=== PATIENT | female | born 1955 | race Hispanic/Latino ===

== ENCOUNTER 2017-12-31 08:31 | Inpatient (IN) | payer MEDICARE ==
[2017-12-28 12:43] LABS: BASOPHILS # (AUTO) 0.1 (0.0-0.1); BASOPHILS % 0.7 % (0.0-1.0); EOSINOPHILS # (AUTO) 0.2 (0.0-0.4); EOSINOPHILS % 2.5 % (0.0-6.0); HEMOGLOBIN 14.6 g/dL (12.0-16.0); LYMPHOCYTES # (AUTO) 3.5 (1.0-3.2); MEAN CORPUSCULAR HEMOGLOBIN 28.4 pg (28-32); MEAN CORPUSCULAR HGB CONC 34.8 g/dL (31-35); MEAN CORPUSCULAR VOLUME 81.7 fL (81-99); MONOCYTES # (AUTO) 0.6 (0.2-0.8); MONOCYTES % 6.4 % (4.4-11.3); NEUTROPHILS # (AUTO) 4.6 (2.1-6.9); NEUTROPHILS % 50.8 % (38.7-80.0); PLATELET COUNT 316 x10e3/uL (140-360); RED BLOOD COUNT 5.14 x10e6/uL (3.6-5.1); RED CELL DISTRIBUTION WIDTH 13.4 % (11.7-14.4)
[2017-12-28 13:06] LABS: ANION GAP 9.1 mmol/L (8-16); BLOOD UREA NITROGEN 12 mg/dL (7-26); BUN/CREATININE RATIO 13 (6-25); CALCIUM 9.3 mg/dL (8.4-10.2); CARBON DIOXIDE 29 mmol/L (22-29); CHLORIDE 101 mmol/L (98-107); EST GLOMERULAR FILTRATION RATE > 60 ML/MIN (60-); GLUCOSE 193 mg/dL (74-118); POTASSIUM 4.1 mmol/L (3.5-5.1); SODIUM 135 mmol/L (136-145)
[~2017-12-31] VITALS: Ht 167.6 cm; Wt 84.8 kg
[~2017-12-31 08:31] MED LIST: ASPIR 8181 MG PO; BACITRACIN 50,000 UNIT VIAL ONE; BUPIVACAINE 7.5MG/ML /DEXTROSE 82.5MG/ML 2 ML AMP INJ ONE; CEFAZOLIN SOD 2 GM/D5W 50ML 50 ML IV ONE; CELECOXIB 200 MG CAP ONE; DEXAMETHASONE SOD PHOS 10 MG/1 ML VIAL ONE; GABAPENTIN 300 MG CAP ONE; GABAPENTIN100 MG PO; GLIPIZIDE5 MG PO; IBANDRONATE SO150 MG PO; LEVEMIR100 UNIT/1 SC; LYRICA50 MG PO; MELOXICAM7.5 MG PO; METFORMIN HCL500 MG PO; METOPROLOL TART25 MG PO; MUPIROCIN 2% OINT 22 GM TUBE ONE; NOVOLOG100 UNIT/1 SC; PAROXETINE HCL20 MG PO; PRAVASTATIN SOD40 MG PO; ROPIVACAINE 246.25 MG, EPINEPHRINE HCL 1:1000 0.5 MG, CLONIDINE HCL 0.08 MG, KETOROLAC ... INJ ONE; TRANEXAMIC ACID 1,000 MG/10 ML ML ONE; TYLENOL # 31 EA PO; ULTRAM 50MG50 MG PO; VASOTEC10 MG PO; VITAMIN D1000 UNI1 PO
[2017-12-31] MEDS: SODIUM CHLORIDE 0.9% 1000ML 1,000 ML IV SCH ×2 (09:17→22:34)
[2017-12-31] MEDS ORDERED: HYDROCODONE/APAP 7.5MG-325MG 1 EA TAB PO PRN (09:30)
[2017-12-31] MEDS ORDERED: PROMETHAZINE HCL (IM) 25 MG/ML VIAL INJ PRN (09:30)
[2017-12-31] MEDS ORDERED: DIPHENHYDRAMINE HCL INJ 50 MG/ML VIAL IM/IV PRN (09:30)
[2017-12-31] MEDS ORDERED: ACETAMINOPHEN 650 MG SUPP PR PRN (09:30)
[2017-12-31] MEDS ORDERED: HYDROCODONE/APAP 5MG-325MG TAB PO PRN (09:30)
[2017-12-31] MEDS ORDERED: KETOROLAC TROMETHAMINE 30 MG/ML VIAL IV PRN (09:30)
[2017-12-31] MEDS ORDERED: ZOLPIDEM TARTRATE 5 MG TAB PO PRN (09:30)
[2017-12-31] MEDS ORDERED: DOCUSATE SODIUM 100 MG CAP PO PRN (09:30)
[2017-12-31] MEDS ORDERED: ONDANSETRON HCL INJ 2 MG/ML VIAL IV PRN (09:30)
--- NOTE | 2017-12-31 11:13 | Diagnostic Imaging Report ---
PROCEDURE:X-RAY PELVIS, AP VIEW COMPARISON:None. INDICATIONS:POST-OP HIP FINDINGS: See conclusion CONCLUSION: Status post total right hip arthroplasty with intact and appropriately positioned acetabular cup and femoral stem components. Subcutaneous gas and skin tracy compatible with recent surgery. Advanced left hip degenerative joint disease. Dictated by: Mitesh Bernstein M.D. on 12/31/2017 at 11:13 Electronically approved by: Mitesh Bernstein M.D. on 12/31/2017 at 11:13
--- NOTE | 2017-12-31 11:35 | Operative Report ---
DATE OF PROCEDURE: December 31, 2017 AUDIT ANALYST: Kenny Helm PA-C The patient was brought to the operating room for induction of anesthesia. Throughout this case, my PA's assistance was necessary for retraction of soft tissue and positioning of the extremity. This allows for efficient and technically successful execution of the operation and is considered medically necessary. PREOPERATIVE DIAGNOSIS: Osteoarthritis, right hip. POSTOPERATIVE DIAGNOSIS: Osteoarthritis, right hip. PROCEDURE: Right total hip arthroplasty. INDICATIONS: The patient is a 62-year-old lady who has advanced arthritis of both hips. She has been treated with extensive conservative management and feels the symptoms are severely compromising her quality of life. She would like to proceed with a right total hip replacement. We have discussed the procedure and the risks and benefits of the procedure. She states she understands and wishes to proceed. DESCRIPTION OF PROCEDURE: The patient was brought to the operating room after receiving prophylactic antibiotics and transexamic acid. She was placed under general anesthetic after being given a spinal. She was positioned in the left lateral decubitus position. Her right hip was prepped and draped in a sterile manner. A preoperative time out was performed. A limited incision posterior approach was made to the right hip. Hemostasis was obtained with electrocautery. A Charnley self-retraining retractor was placed. The posterior capsule was carefully exposed, and further hemostasis was obtained with electrocautery. The posterior capsule and short external rotators were released. The hip was dislocated, and an oscillating saw was used to resect the femoral head. Complete loss of articular cartilage was noted. Acetabular retractors were placed. The labral remnant was excised with a long-handled knife. The true floor of the acetabulum was established. The socket was then sequentially reamed to 53 mm. This accomplished bleeding hemispherical cancellous bone. A small subchondral cyst in the dome of the acetabulum was debrided. A Arnold [employer]omet OsseoTi socket with a 54 mm outer diameter was then impacted into place. Nice fixation was obtained. Fixation was augmented with a single 25 mm screw placed into the ilium. The hip was thoroughly irrigated with a shower-tip pulsatile lavage on several occasions throughout this portion of the procedure. A highly cross-linked polyethylene liner with a 36 mm inner diameter was then impacted into place. Care was taken to make sure that there was no evidence of soft-tissue interposition. A portion of a 100 mL pericapsular ADAM injection was placed into the soft tissue. Attention was then directed towards the proximal femur. The socket was packed with moistly soaked lap sponge. Box cutting osteotome and taper pin reamer were used to establish entry to the femoral canal. The Arnold [employer]omet Taperloc broaches were then impacted and trialed. A #12 stem had good canal fill and stability for trial reductions. A standard 36 mm head provided nice stability, pentecostal of limb length and soft-tissue balancing. The trial implants were removed. The hip was thoroughly irrigated with a Pulsavac. The implants were seated, and a final reduction was performed. The hip was put through a range of motion and noted to be stable. The posterior capsule and short external rotators were repaired with #2 Ethibond. The tensor fascia and gluteal fascia were closed with #2 Ethibond. The skin was closed subcuticular Vicryl and tracy. Estimated blood loss was 100 mL. All needle and sponge counts were correct. Job#: [id number]
[2017-12-31 12:00] VITALS: BP 110/53
[2017-12-31] MEDS: ACETAMINOPHEN 1000 MG/100 ML IV SCH ×2 (12:00→17:17)
[2017-12-31 12:42] VITALS: BP 101/55
[2017-12-31] MEDS ORDERED: CEFAZOLIN SOD 1 GM VIAL IV SCH (14:00)
[2017-12-31] MEDS ORDERED: CEFAZOLIN SOD 1 GM/NS 50ML 50 ML IV SCH (14:00)
[2017-12-31 16:26] VITALS: BP 102/54
[2017-12-31] MEDS ORDERED: GABAPENTIN 100 MG CAP PO PRN (16:30)
[2017-12-31] MEDS ORDERED: TRAMADOL HCL 50 MG TAB PO PRN (16:30)
[2017-12-31] MEDS: CELECOXIB 200 MG CAP PO SCH (17:00)
[2017-12-31] MEDS: INSULIN LISPRO 100 UNIT/1 ML 3ML VIAL SQ SCH (17:00)
[2017-12-31] MEDS: METFORMIN HCL 500 MG TAB PO SCH (17:00)
[2017-12-31] MEDS: CEFAZOLIN SOD 1 GM VIAL IV SCH (17:00)
[2017-12-31] MEDS: ASPIRIN 325 MG TAB PO SCH (17:00)
[2017-12-31] MEDS ORDERED: ONDANSETRON HCL INJ 2 MG/ML VIAL ONE (18:08)
[2017-12-31] MEDS ORDERED: SEVOFLURANE INHAL SOLN 250 ML PEN BTL ONE (18:08)
[2017-12-31] MEDS ORDERED: LIDOCAINE HCL 2% LOCAL INJ 5 ML SDV VIAL INJ ONE (18:08)
[2017-12-31] MEDS ORDERED: PROPOFOL IV EMULSION 10 MG/ML 20 ML VIAL ONE (18:08)
[2017-12-31] MEDS ORDERED: FENTANYL CITRATE/PF 100MCG/2 ML INJ ONE (18:24)
[2017-12-31] MEDS ORDERED: MIDAZOLAM HCL 2 MG/2 ML VIAL ONE (18:24)
[2017-12-31 20:00] VITALS: BP 112/56
[2017-12-31] MEDS: METOPROLOL TARTRATE 25 MG TAB PO SCH (21:00)
[2017-12-31] MEDS ORDERED: PRAVASTATIN 20 MG TAB PO SCH (21:00)
[2017-12-31] MEDS: INSULIN DETEMIR 100 UNIT/ML PEN SQ SCH (21:00)
[2017-12-31] MEDS ORDERED: INSULIN DETEMIR 32 UNIT SC SCH (21:00)
[2017-12-31] MEDS ORDERED: NON-FORMULARY MEDICATION (Pravastatin Sodium 1 TAB) PO SCH (21:00)
[2017-12-31] MEDS: PREGABALIN 50 MG CAP PO SCH (22:36)
[2018-01-01] VITALS: BP 104/53
[2018-01-01] MEDS: CEFAZOLIN SOD 1 GM VIAL IV SCH ×2 (00:20→08:00)
[2018-01-01] MEDS: ACETAMINOPHEN 1000 MG/100 ML IV SCH ×2 (00:20→06:20)
[2018-01-01 04:00] VITALS: BP 111/56
[2018-01-01] MEDS: SODIUM CHLORIDE 0.9% 1000ML 1,000 ML IV SCH ×3 (05:17→15:17)
[2018-01-01] MEDS ORDERED: HYDROMORPHONE 1MG/1ML INJ IV PRN (06:15)
[2018-01-01 07:20] LABS: HEMATOCRIT 29.6 % (34.2-44.1)
[2018-01-01] MEDS: INSULIN LISPRO 100 UNIT/1 ML 3ML VIAL SQ SCH ×3 (07:30→16:30)
[2018-01-01 08:29] VITALS: BP 105/58
[2018-01-01] MEDS: PREGABALIN 50 MG CAP PO SCH (09:00)
[2018-01-01] MEDS: METFORMIN HCL 500 MG TAB PO SCH ×2 (09:00→17:00)
[2018-01-01] MEDS: CELECOXIB 200 MG CAP PO SCH ×2 (09:00→17:00)
[2018-01-01] MEDS ORDERED: IBANDRONATE PO SCH (09:00)
[2018-01-01] MEDS: METOPROLOL TARTRATE 25 MG TAB PO SCH (09:00)
[2018-01-01] MEDS ORDERED: GLIPIZIDE 5 MG TAB PO SCH (09:00)
[2018-01-01] MEDS: INSULIN DETEMIR 100 UNIT/ML PEN SQ SCH (09:00)
[2018-01-01] MEDS: ASPIRIN 325 MG TAB PO SCH ×2 (09:00→17:00)
[2018-01-01] MEDS ORDERED: ENALAPRIL MALEATE 10 MG TAB PO SCH (09:00)
[2018-01-01] MEDS ORDERED: IBANDRONATE SODIUM PO SCH (09:00)
[2018-01-01] MEDS ORDERED: PAROXETINE HCL 20 MG TAB PO SCH (09:00)
[2018-01-01] MEDS ORDERED: ACETAMINOPHEN 1000 MG/100 ML IV PRN (09:30)
[2018-01-01] MEDS ORDERED: ASPIRIN325 MG PO (11:54)
[2018-01-01 16:44] VITALS: BP 98/57
--- NOTE | 2018-01-01 23:56 | Consultation ---
DATE OF CONSULTATION: January 01, 2018 TIME: 6:00 a.m. MEDICAL CONSULTATION REQUESTED BY: Dr. Campos REASON FOR CONSULTATION: Medical management. CHIEF COMPLAINT: Severe osteoarthritis of the right hip. HISTORY OF PRESENT ILLNESS: This is a 62-year-old woman, with severe osteoarthritis of the bilateral hips, who presented for elective revision of right hip. Procedure was performed. Patient's pain is currently 8/10. She denies any nausea, vomiting. PAST MEDICAL HISTORY: Severe osteoarthritis, diabetes mellitus, type 2, rheumatoid arthritis, hypertension, osteoporosis, urinary tract infection E. coli in 2016, fibroids, diabetic neuropathy, positive JEROME testing, low vitamin D. PAST SURGICAL HISTORY: Abscess removal, in 1979 and 1990, cholecystectomy in 1980, partial hysterectomy in 1981. ALLERGIES: PER ELECTRONIC MEDICAL RECORD. FAMILY HISTORY/SOCIAL HISTORY: Patient's daughter is involved in her care. Her mother is age 84, she had diabetes mellitus, type 2, and stoke. Her father at age 63 of tuberculosis and heart attack. Patient denies any alcohol, illicits or cigarettes. MEDICATIONS: Per electronic medical record. REVIEW OF SYSTEMS: Denies any dizziness or chest pain. PHYSICAL EXAMINATION VITAL SIGNS: Temperature 96.9, pulse 70, blood pressure 110/63, respiratory rate 16, oxygen saturation 98% on room air. GENERAL: A tired-appearing woman resting in bed. HEENT: Anicteric. CARDIOVASCULAR: Normal S1, S2 without murmurs. ABDOMEN: Soft, nontender, nondistended. EXTREMITIES: Right hip, she has a dressing in place, clean and dry. SKIN: Dry. PSYCHIATRIC: Normal affect. NEUROLOGIC: Alert and oriented times 3. Moving extremities. LABS: Reviewed. MEDICATIONS: Reviewed. ASSESSMENT AND PLAN: A 62-year-old woman with 1. Severe osteoarthritis/rheumatoid arthritis. She is status post right hip replacement: Physical therapy consultation. Continue deep venous thrombosis prophylaxis. 2. Right hip pain. P.r.n. narcotics, titrate as appropriate. 3. Diabetes mellitus, type 2. Continue home medication. 4. Hypertension. Continue medication regimen. 5. Anxiety/depression. Continue paroxetine. 6. Insomnia. Continue Ambien. 7. Prophylaxis: Continue deep venous thrombosis prophylaxis. 8. Disposition: Discharge planning per the primary team. Job#: [id number] CQ
[2018-01-05] MEDS ORDERED: CHOLECALCIFEROL 1,000 UNIT TAB PO SCH (09:00)
[2018-01-23] MEDS ORDERED: ERGOCALCIFEROL 50,000 UNIT CAP PO SCH (09:00)
== END 2018-01-01 18:08 | disposition home health service (06) | DRG 470 ==
LOC: OR 08:31 → MED/SURG 11:10
PROVIDERS: ADMIT Specialist; ATTEND Specialist
PROC: 0SR904Z Replacement of Right Hip Joint with Ceramic on Polyethylene Synthetic Substitute, Open Approach (ICD-10-PCS; principal; 2017-12-31 07:30)
DX: M16.11 Unilateral primary osteoarthritis, right hip (principal); E11.40 Type 2 diabetes mellitus with diabetic neuropathy, unspecified; D64.9 Anemia, unspecified; M06.9 Rheumatoid arthritis, unspecified; I10 Essential (primary) hypertension; F41.8 Other specified anxiety disorders; G47.00 Insomnia, unspecified; Z79.82 Long term (current) use of aspirin; Z79.4 Long term (current) use of insulin
CPT/HCPCS: 36415; 72170; 80048; 82948; 85014; 85018; 85025; 86850; 86900; 86920; 93005; 97139; C1713; J0171; J0690; J1100; J1885; J2001; J2250; J2405; J2795; J7030

== ENCOUNTER 2018-04-01 05:17 | Inpatient (IN) | payer MEDICARE ==
[2018-03-29 12:43] LABS: BASOPHILS # (AUTO) 0.1 (0.0-0.1); BASOPHILS % 0.5 % (0.0-1.0); EOSINOPHILS % 0.2 % (0.0-6.0); HEMATOCRIT 40.7 % (34.2-44.1); HEMOGLOBIN 13.7 g/dL (12.0-16.0); LYMPHOCYTES # (AUTO) 2.5 (1.0-3.2); LYMPHOCYTES % 26.7 % (18.0-39.1); MEAN CORPUSCULAR HEMOGLOBIN 27.3 pg (28-32); MEAN CORPUSCULAR HGB CONC 33.7 g/dL (31-35); MEAN CORPUSCULAR VOLUME 81.1 fL (81-99); MONOCYTES # (AUTO) 0.5 (0.2-0.8); MONOCYTES % 5.5 % (4.4-11.3); NEUTROPHILS # (AUTO) 6.3 (2.1-6.9); NEUTROPHILS % 66.8 % (38.7-80.0); PLATELET COUNT 310 x10e3/uL (140-360); RED BLOOD COUNT 5.02 x10e6/uL (3.6-5.1); RED CELL DISTRIBUTION WIDTH 13.2 % (11.7-14.4)
[2018-03-29 12:59] LABS: ANION GAP 11.5 mmol/L (8-16); BLOOD UREA NITROGEN 13 mg/dL (7-26); BUN/CREATININE RATIO 14 (6-25); CALCIUM 9.5 mg/dL (8.4-10.2); CARBON DIOXIDE 27 mmol/L (22-29); CHLORIDE 101 mmol/L (98-107); CREATININE, SERUM 0.91 mg/dL (0.57-1.11); EST GLOMERULAR FILTRATION RATE > 60 ML/MIN (60-); GLUCOSE 216 mg/dL (74-118); POTASSIUM 4.5 mmol/L (3.5-5.1); SODIUM 135 mmol/L (136-145)
[~2018-04-01] VITALS: Ht 165.1 cm; Wt 80.7 kg
[~2018-04-01 05:17] MED LIST changes: +ASPIRIN325 MG PO; -BACITRACIN 50,000 UNIT VIAL ONE; -BUPIVACAINE 7.5MG/ML /DEXTROSE 82.5MG/ML 2 ML AMP INJ ONE; -CEFAZOLIN SOD 2 GM/D5W 50ML 50 ML IV ONE; -CELECOXIB 200 MG CAP ONE; -DEXAMETHASONE SOD PHOS 10 MG/1 ML VIAL ONE; -GABAPENTIN 300 MG CAP ONE; -MUPIROCIN 2% OINT 22 GM TUBE ONE; -ROPIVACAINE 246.25 MG, EPINEPHRINE HCL 1:1000 0.5 MG, CLONIDINE HCL 0.08 MG, KETOROLAC ... INJ ONE; -TRANEXAMIC ACID 1,000 MG/10 ML ML ONE
[2018-04-01] MEDS ORDERED: CELECOXIB 200 MG CAP ONE (05:39)
[2018-04-01] MEDS ORDERED: CEFAZOLIN SOD 2 GM/D5W 50ML 50 ML IV ONE (05:40)
[2018-04-01] MEDS ORDERED: DEXAMETHASONE SOD PHOS 10 MG/1 ML VIAL ONE (05:40)
[2018-04-01] MEDS ORDERED: GABAPENTIN 300 MG CAP ONE (05:40)
[2018-04-01] MEDS ORDERED: ROPIVACAINE 246.25 MG, EPINEPHRINE HCL 1:1000 0.5 MG, CLONIDINE HCL 0.08 MG, KETOROLAC ... INJ ONE ×5 (06:00)
[2018-04-01] MEDS ORDERED: TRANEXAMIC ACID 1,000 MG/10 ML ML ONE (06:19)
[2018-04-01] MEDS ORDERED: MUPIROCIN 2% OINT 22 GM TUBE ONE (06:19)
[2018-04-01] MEDS ORDERED: BACITRACIN 50,000 UNIT VIAL ONE (06:20)
[2018-04-01] MEDS ORDERED: BUPIVACAINE 7.5MG/ML /DEXTROSE 82.5MG/ML 2 ML AMP INJ ONE (07:29)
[2018-04-01] MEDS ORDERED: ACETAMINOPHEN 650 MG SUPP PR PRN (08:45)
[2018-04-01] MEDS ORDERED: KETOROLAC TROMETHAMINE 30 MG/ML VIAL IV PRN (08:45)
[2018-04-01] MEDS ORDERED: HYDROCODONE/APAP 5MG-325MG TAB PO PRN (08:45)
[2018-04-01] MEDS ORDERED: DOCUSATE SODIUM 100 MG CAP PO PRN (08:45)
[2018-04-01] MEDS ORDERED: ONDANSETRON HCL INJ 2 MG/ML VIAL IV PRN (08:45)
[2018-04-01] MEDS ORDERED: DIPHENHYDRAMINE HCL INJ 50 MG/ML VIAL IM/IV PRN (08:45)
[2018-04-01] MEDS ORDERED: PROMETHAZINE HCL (IM) 25 MG/ML VIAL INJ PRN (08:45)
[2018-04-01] MEDS ORDERED: ZOLPIDEM TARTRATE 5 MG TAB PO PRN (08:45)
[2018-04-01] MEDS ORDERED: CELECOXIB 100 MG CAP PO SCH (09:00)
[2018-04-01] MEDS ORDERED: ASPIRIN 325 MG TAB PO SCH (09:00)
--- NOTE | 2018-04-01 09:44 | Diagnostic Imaging Report ---
PROCEDURE:X-RAY PELVIS, AP VIEW COMPARISON:[facility], DX, PELVIS AP 1-2 VIEWS, 12/31/2017, 10:38. INDICATIONS:STATUS POST LEFT HIP SURGERY FINDINGS: New left hip arthroplasty with good position the acetabular cup and femoral shaft portion of the prosthesis. Surgical tracy and gas in the soft tissues is noted about the left proximal hip and femur. Old right hip prosthesis present. There are no fractures, dislocations, lytic or blastic lesions. The bones are well-mineralized. CONCLUSION: Status post left hip arthroplasty with good position of the prosthesis. Zaire Alvarez D.O. Dictated by: Zaire Alvarez D.O. on 04/01/2018 at 9:48 Electronically approved by: Zaire Alvarez D.O. on 04/01/2018 at 9:48
[2018-04-01 10:00] VITALS: BP 115/59
[2018-04-01 10:23] VITALS: BP 84/46
[2018-04-01] MEDS: SODIUM CHLORIDE 0.9% 1000ML 1,000 ML IV SCH ×2 (10:28→18:22)
--- NOTE | 2018-04-01 10:39 | Operative Report ---
DATE OF PROCEDURE: April 01, 2018 PREOPERATIVE DIAGNOSIS: Osteoarthritis, left hip. POSTOPERATIVE DIAGNOSIS: Osteoarthritis, left hip. PROCEDURE: Left total hip arthroplasty. LEATHER GRAINER: Kenny Helm PA-C The patient was brought to the operating room for induction of anesthesia. Throughout this case, my PA's assistance was necessary for retraction of soft tissue and positioning of the extremity. This allows for efficient and technically successful execution of the operation and is considered medically necessary. INDICATIONS: The patient is a 62-year-old lady who has end-stage arthritis of her left hip. She had a similar situation on her right hip, which recently responded well to a right total hip replacement. She would now like to proceed with a left total hip replacement. The risks and benefits have been explained. The implants, the hospital stay, and recovery have all been reviewed. She states she understands and wishes to proceed. DESCRIPTION OF PROCEDURE: The patient was brought to the operating room and given a spinal anesthetic. She received prophylactic antibiotics and tranexamic acid in the holding area. She was positioned in the right lateral decubitus position. Her left hip was prepped and draped in a sterile manner. A preoperative time out was performed. A limited incision posterior approach was made to the left hip. Hemostasis was obtained with electrocautery. A deep self-retaining Charnley retractor was placed. Care was taken to avoid injury to the sciatic nerve. The posterior capsule was carefully released. The piriformis attachment was preserved. Further hemostasis was obtained with electrocautery. The hip was dislocated and an oscillating saw was used to resect the femoral head. Complete loss of articular cartilage was noted. Acetabular retractors were carefully placed. Marginal osteophytes and labral remnants were excised. The true floor of the acetabulum was established with a 46-mm reamer. The socket was then sequentially reamed to 53 mm. This accomplished bleeding hemispherical cancellous bone. The hip was thoroughly irrigated with a shower-tip pulsatile lavage. A portion of a premixed pericapsular ADAM injection was placed into the surroundings soft tissue. A [employer] 54 mm outer diameter OsseoTi socket was then impacted into place. Fixation was augmented with a single 25-mm cancellous screw placed into the ilium. A highly cross-linked polyethylene liner with no posterior elevation was then seated into place. Care was taken to make sure that there was no evidence of soft tissue interposition. Attention was then directed towards the proximal femur. A box cutting osteotome and taper pin reamers were used to establish entry to the femoral canal. The Arnold [employer] Taperloc broaches were then impacted. A #12 stem had good canal fill for trial reductions. A standard 36-mm head was felt to provide optimal soft tissue balancing, catholic, and stability. The hip was put through a full arc of motion without any anterior impingement or instability. The trial implants were removed. The hip was further irrigated with a shower-tip pulsatile lavage. The remainder of the pericapsular injection was placed. The implants were seated. A standard 36-mm head on a +0 trunnion was seated onto the stem. Meticulous care was used to perform a final reduction. The posterior capsule was carefully repaired with interrupted #2 Ethibond. The proximal portion of the tensor fascia was closed with #2 Ethibond. The gluteal fascia was closed with #2 Ethibond. The skin was closed with subcuticular Vicryl and tracy. A sterile bandage was applied. She was returned to the supine position and transported to the recovery room in stable condition. Blood loss was approximately 75 mL. At the end of the procedure, all needle and sponge counts were correct. Job#: [id number]
[2018-04-01 11:51] VITALS: BP 115/59
[2018-04-01] MEDS: PREGABALIN 50 MG CAP PO SCH ×2 (12:00→23:50)
[2018-04-01] MEDS ORDERED: IBANDRONATE SODIUM PO SCH (12:00)
[2018-04-01] MEDS: METOPROLOL TARTRATE 25 MG TAB PO SCH ×2 (12:00→23:55)
[2018-04-01] MEDS: ACETAMINOPHEN 1000 MG/100 ML IV SCH ×3 (12:57→23:50)
[2018-04-01] MEDS ORDERED: CEFAZOLIN SOD 1 GM/NS 50ML 50 ML IV SCH (14:00)
[2018-04-01] MEDS: TRAMADOL HCL 50 MG TAB PO SCH ×2 (14:09→20:47)
[2018-04-01] MEDS: CEFAZOLIN SOD 1 GM VIAL IV SCH ×2 (14:09→20:47)
[2018-04-01] MEDS ORDERED: FENTANYL CITRATE/PF 100MCG/2 ML INJ ONE (14:47)
[2018-04-01] MEDS ORDERED: KETAMINE HCL INJ 50 MG/ML 10 ML VIAL ONE (14:47)
[2018-04-01] MEDS ORDERED: MIDAZOLAM HCL 2 MG/2 ML VIAL ONE (14:47)
[2018-04-01] MEDS: HYDROCODONE/APAP 7.5MG-325MG 1 EA TAB PO PRN ×2 (15:30→23:51)
[2018-04-01] MEDS: METFORMIN HCL 500 MG TAB PO SCH (15:47)
[2018-04-01 16:03] VITALS: BP 87/51
[2018-04-01] MEDS ORDERED: INSULIN LISPRO 100 UNIT/1 ML 3ML VIAL SQ SCH (17:00)
[2018-04-01] MEDS: CELECOXIB 200 MG CAP PO SCH (17:00)
[2018-04-01] MEDS ORDERED: DEXTROSE 50% SYRINGE 50 ML IV PRN (17:30)
[2018-04-01] MEDS: INSULIN REGULAR, HUMAN 100 UNIT/1 ML 3ML VIAL SQ SCH ×2 (17:45→21:00)
[2018-04-01 20:00] VITALS: BP 115/58
[2018-04-01] MEDS: INSULIN DETEMIR 100 UNIT/ML PEN SQ SCH (20:48)
[2018-04-01] MEDS ORDERED: INSULIN DETEMIR 100 UNIT/ML PEN SQ SCH (21:00)
[2018-04-01] MEDS ORDERED: INSULIN DETEMIR 32 UNIT SC SCH (21:00)
[2018-04-01] MEDS ORDERED: NON-FORMULARY MEDICATION (Pravastatin Sodium 1 TAB) PO SCH (21:00)
[2018-04-01] MEDS ORDERED: PRAVASTATIN 20 MG TAB PO SCH (21:00)
[2018-04-02] VITALS: BP 91/70
[2018-04-02 04:00] VITALS: BP 89/50
[2018-04-02] MEDS: SODIUM CHLORIDE 0.9% 1000ML 1,000 ML IV SCH ×2 (04:31→12:06)
[2018-04-02] MEDS: CEFAZOLIN SOD 1 GM VIAL IV SCH (04:47)
[2018-04-02] MEDS: ACETAMINOPHEN 1000 MG/100 ML IV SCH (04:47)
[2018-04-02] MEDS: TRAMADOL HCL 50 MG TAB PO SCH ×2 (04:48→12:06)
[2018-04-02 06:47] LABS: HEMATOCRIT 28.8 % (34.2-44.1); HEMOGLOBIN 9.7 g/dL (12.0-16.0)
[2018-04-02] MEDS ORDERED: GLIPIZIDE 5 MG TAB PO SCH (07:30)
[2018-04-02] MEDS ORDERED: INSULIN LISPRO 100 UNIT/1 ML 3ML VIAL SQ SCH (07:30)
[2018-04-02] MEDS: INSULIN REGULAR, HUMAN 100 UNIT/1 ML 3ML VIAL SQ SCH ×2 (07:30→11:57)
[2018-04-02 07:56] VITALS: BP 113/54
[2018-04-02] MEDS: METFORMIN HCL 500 MG TAB PO SCH (08:11)
[2018-04-02] MEDS: CELECOXIB 200 MG CAP PO SCH (08:11)
[2018-04-02] MEDS ORDERED: ACETAMINOPHEN 1000 MG/100 ML IV PRN (08:45)
[2018-04-02] MEDS ORDERED: ENALAPRIL MALEATE 10 MG TAB PO SCH (09:00)
[2018-04-02] MEDS ORDERED: ASPIRIN 325 MG TAB PO SCH (09:00)
[2018-04-02] MEDS: INSULIN DETEMIR 100 UNIT/ML PEN SQ SCH (09:00)
[2018-04-02 09:26] VITALS: BP 113/54
--- NOTE | 2018-04-02 09:49 | History and Physical ---
PRIMARY CARE PHYSICIAN: Dr. Yossi Kelly CHIEF COMPLAINT: Left hip osteoarthritis. HISTORY OF PRESENT ILLNESS: This is a 62-year-old woman with a history of severe osteoarthritis of bilateral hips, who underwent right hip replacement now coming in for elective left hip replacement. She underwent the procedure yesterday, and currently is resting in bed with some discomfort. REVIEW OF SYSTEMS: Denies any chest pain, shortness of breath, fever, chills, sweats, nausea, vomiting, diarrhea, dizziness, blurred vision. PAST MEDICAL HISTORY: She has diabetes mellitus, type 2, hypertension, severe osteoarthritis, ambulatory dysfunction, diabetic neuropathy, osteoporosis, hyperlipidemia. PAST SURGICAL HISTORY: Right hip replacement. ALLERGIES: PER ELECTRONIC MEDICAL RECORD. FAMILY HISTORY/SOCIAL HISTORY: Patient has a child involved in her care. No alcohol, illicits or cigarettes. MEDICATIONS: Per electronic medical record. PHYSICAL EXAMINATION VITAL SIGNS: Have been reviewed. GENERAL: A tired-appearing woman resting in bed. HEENT: Anicteric. Pupils respond to light. No oral lesions. CARDIOVASCULAR: Normal S1 and S2. LUNGS: Moderate breath sounds. ABDOMEN: Soft, nontender and nondistended. EXTREMITIES: No edema or calf tenderness. Left hip with dressing in place clean and dry. SKIN: Dry. PSYCHIATRIC: Normal affect. LABS: Reviewed. MEDICATIONS: Reviewed. ASSESSMENT: This is a 62-year-old woman with: 1. Severe hip osteoarthritis: Status post left hip replacement. 2. Diabetes mellitus, type 2. 3. Hypertension. 4. Hyperlipidemia. 5. Left hip pain. 6. Normocytic anemia. 7. Osteoporosis. 8. Physical deconditioning. PLAN 1. Pain control. 2. Physical therapy. 3. Control diabetes. 4. Bowel regimen. 5. Continue home medications. 6. DVT prophylaxis and GI prophylaxis. 7. Disposition. Will need physical therapy at home. Job#: [id number] [place]
[2018-04-02] MEDS: HYDROCODONE/APAP 7.5MG-325MG 1 EA TAB PO PRN (11:15)
[2018-04-02] MEDS: PREGABALIN 50 MG CAP PO SCH (11:59)
[2018-04-02 12:00] VITALS: BP 105/52
[2018-04-02] MEDS ORDERED: ASPIRIN325 MG PO (13:11)
--- NOTE | 2018-04-03 07:46 | Discharge Summary ---
PRINCIPAL DIAGNOSES 1. Severe hip osteoarthritis, status post left hip replacement. 2. Diabetes mellitus, type 2. 3. Left hip pain. 4. Physical deconditioning. 5. Normocytic anemia. SECONDARY DIAGNOSIS: Diabetes mellitus, type 2. CHIEF COMPLAINT: Left hip pain. HISTORY OF PRESENT ILLNESS: This is a 62-year-old woman with left hip pain. Please refer to the H and P for further details. HOSPITAL COURSE: The patient had left hip pain and severe left hip osteoarthritis. Underwent left hip replacement. Pain was treated with medication regimen. Diabetes mellitus, type 2 was treated with medication. Also, was treated for hypertension and hyperlipidemia. For physical deconditioning, received physical therapy. The patient was transitioned out of the hospital. DISCHARGE MEDICATIONS: Per electronic medical record. FOLLOWUP: Primary care doctor in 1 week. CONDITION ON DISCHARGE: Stable and improving. DISCHARGE LOCATION: Home with physical therapy. SADA VEGAS MD Job#: [id number] PR
[2018-04-11] MEDS ORDERED: IBANDRONATE SODIUM PO SCH (09:00)
== END 2018-04-02 15:20 | disposition home health service (06) | DRG 470 ==
LOC: OR 05:17 → PACU V 09:07 → MED/SURG 09:45
PROVIDERS: ADMIT Specialist; ATTEND Specialist
PROC: 0SRB0JZ Replacement of Left Hip Joint with Synthetic Substitute, Open Approach (ICD-10-PCS; principal; 2018-04-01 07:30)
DX: M16.12 Unilateral primary osteoarthritis, left hip (principal); Z96.641 Presence of right artificial hip joint; D64.9 Anemia, unspecified; E11.40 Type 2 diabetes mellitus with diabetic neuropathy, unspecified; I10 Essential (primary) hypertension; E78.5 Hyperlipidemia, unspecified; M81.0 Age-related osteoporosis without current pathological fracture; R26.9 Unspecified abnormalities of gait and mobility; I95.9 Hypotension, unspecified; Z79.82 Long term (current) use of aspirin; Z79.4 Long term (current) use of insulin
CPT/HCPCS: 36415; 72170; 80048; 82948; 85014; 85018; 85025; 86850; 86900; 86920; 96372; C1713; J0171; J0690; J1100; J1885; J2250; J2795; J7030

== ENCOUNTER 2018-10-14 05:10 | Observation (INO) | payer MEDICARE ==
[2018-10-11 13:37] LABS: BASOPHILS # (AUTO) 0.1 (0.0-0.1); BASOPHILS % 0.7 % (0.0-1.0); EOSINOPHILS # (AUTO) 0.2 (0.0-0.4); EOSINOPHILS % 2.5 % (0.0-6.0); HEMATOCRIT 40.4 % (34.2-44.1); HEMOGLOBIN 13.6 g/dL (12.0-16.0); LYMPHOCYTES # (AUTO) 4.1 (1.0-3.2); MEAN CORPUSCULAR HEMOGLOBIN 27.5 pg (28-32); MEAN CORPUSCULAR HGB CONC 33.7 g/dL (31-35); MEAN CORPUSCULAR VOLUME 81.6 fL (81-99); MONOCYTES # (AUTO) 0.7 (0.2-0.8); MONOCYTES % 7.5 % (4.4-11.3); NEUTROPHILS # (AUTO) 4.4 (2.1-6.9); NEUTROPHILS % 45.8 % (38.7-80.0); PLATELET COUNT 294 x10e3/uL (140-360); RED BLOOD COUNT 4.95 x10e6/uL (3.6-5.1); RED CELL DISTRIBUTION WIDTH 14.1 % (11.7-14.4)
[2018-10-11 14:02] LABS: ANION GAP 11.6 mmol/L (8-16); CALCIUM 9.4 mg/dL (8.4-10.2); CREATININE, SERUM 1.09 mg/dL (0.57-1.11); POTASSIUM 4.6 mmol/L (3.5-5.1)
[2018-10-14] VITALS (7 sets, daily range): BP systolic 103–149; BP diastolic 59–66
[~2018-10-14] VITALS: Ht 167.6 cm; Wt 87.2 kg
[~2018-10-14 05:10] MED LIST changes: +ASPIR 8181 MG; +HUMALOG100 UNIT/3 SQ; +LYRICA75 MG
[2018-10-14] MEDS ORDERED: DEXAMETHASONE SOD PHOS 10 MG/1 ML VIAL ONE (05:18)
[2018-10-14] MEDS ORDERED: GABAPENTIN 300 MG CAP ONE (05:18)
[2018-10-14] MEDS ORDERED: CEFAZOLIN SOD 2 GM/D5W 50ML 50 ML IV ONE (05:18)
[2018-10-14] MEDS ORDERED: CELECOXIB 200 MG CAP ONE (05:18)
[2018-10-14] MEDS ORDERED: ROPIVACAINE 246.25 MG, EPINEPHRINE HCL 1:1000 0.5 MG, CLONIDINE HCL 0.08 MG, KETOROLAC ... INJ ONE ×5 (06:00)
[2018-10-14] MEDS ORDERED: TRANEXAMIC ACID 1,000 MG/10 ML ML ONE (06:27)
[2018-10-14] MEDS ORDERED: BACITRACIN 50,000 UNIT VIAL ONE (06:27)
[2018-10-14] MEDS ORDERED: MUPIROCIN 2% OINT 22 GM TUBE ONE (06:27)
[2018-10-14] MEDS ORDERED: INSULIN REGULAR, HUMAN 100 UNIT/1 ML 3ML VIAL ONE (06:49)
[2018-10-14] MEDS ORDERED: [UNRECOGNIZED DRUG - OTHER] INJ ONE (07:41)
[2018-10-14] MEDS ORDERED: VANCOMYCIN HCL 500 MG VIAL IV ONE (07:43)
[2018-10-14] MEDS ORDERED: SODIUM CHLORIDE 0.9% INJ 500 ML BAG ONE (07:44)
[2018-10-14] MEDS ORDERED: PROMETHAZINE HCL (IM) 25 MG/ML VIAL INJ PRN (08:45)
[2018-10-14] MEDS ORDERED: HYDROCODONE/APAP 5MG-325MG TAB PO PRN (08:45)
[2018-10-14] MEDS ORDERED: HYDROCODONE/APAP 7.5MG-325MG 1 EA TAB PO PRN (08:45)
[2018-10-14] MEDS ORDERED: ONDANSETRON HCL INJ 2 MG/ML VIAL IV PRN (08:45)
[2018-10-14] MEDS ORDERED: DIPHENHYDRAMINE HCL INJ 50 MG/ML VIAL IM/IV PRN (08:45)
[2018-10-14] MEDS ORDERED: KETOROLAC TROMETHAMINE 30 MG/ML VIAL IV PRN (08:45)
[2018-10-14] MEDS ORDERED: ZOLPIDEM TARTRATE 5 MG TAB PO PRN (08:45)
[2018-10-14] MEDS ORDERED: ACETAMINOPHEN 650 MG SUPP PR PRN (08:45)
[2018-10-14] MEDS ORDERED: DOCUSATE SODIUM 100 MG CAP PO PRN (08:45)
[2018-10-14] MEDS ORDERED: CELECOXIB 100 MG CAP PO SCH (09:00)
[2018-10-14] MEDS ORDERED: HYDROMORPHONE 2MG/ML 2 MG/ML ML ONE (09:15)
--- NOTE | 2018-10-14 09:18 | Diagnostic Imaging Report ---
CPT CODE: 87471 HISTORY: Post-op COMPARISON: None. FINDINGS: There has been placement of a total knee prosthesis. There is excellent alignment of the patellar, tibial and femoral components. Skin tracy are present over the anterior aspect of the knee. There is some air within the soft tissues secondary to the surgery. IMPRESSION: Postoperative changes as described above. Signed by: Dr. Kristi De La Vega MD on 10/14/2018 9:15 AM
--- NOTE | 2018-10-14 09:44 | Operative Report ---
DATE OF PROCEDURE: October 14, 2018 DIRECTOR TRANSLATION: Kenny Helm PA-C The patient was brought to the operating room for induction of anesthesia. Throughout this case, my PA's assistance was necessary for retraction of soft tissue and positioning of the extremity. This allows for efficient and technically successful execution of the operation and is considered medically necessary. PREOPERATIVE DIAGNOSIS: Osteoarthritis, right knee. POSTOPERATIVE DIAGNOSIS: Osteoarthritis, right knee. PROCEDURE: Right total knee replacement. INDICATIONS: The patient is a 63-year-old lady with advanced osteoarthritis of her right knee. She has failed conservative management and would like to proceed with a right total knee replacement. The risks and benefits of the procedure have been discussed. The importance of her participation in physical therapy has been explained. She states she understands and wishes to proceed. DESCRIPTION OF PROCEDURE: The patient was brought to the operating room and placed under general anesthetic. She received prophylactic antibiotics, a regional block and tranexamic acid in the holding area. Her right lower extremity was prepped and draped in a sterile manner. A preoperative time out was performed. The extremity was exsanguinated and a proximal tourniquet was inflated to 300 mmHg. An anterior approach with a medial parapatellar arthrotomy was performed. Clear synovial fluid was removed from the joint. Soft tissue releases were performed to bring the knee up into flexion with the patella everted. A Echeverria and Nephew posterior stabilized Legion knee system was used. The cruciate ligaments were sacrificed. Meniscal remnants and marginal osteophytes were removed. An extramedullary cutting guide was used to resect the proximal tibia. There was complete loss of articular cartilage primarily involving the lateral compartment. The tibial baseplate was a size #4. The central fin punch was impacted and attention was directed towards the distal femur. An intramedullary cutting guide was used to resect the distal femur in 6 degrees of valgus and external rotation roughly referenced off of a combination landmarks, including [place] line, the epicondylar axis and posterior condyles. The femoral component was a size #5. The anterior and posterior cuts were made. Trial reductions were performed. A lateral soft tissue release was necessary. A lamina sub assembly team worker was placed into the knee. The posterolateral corner was released. This improved soft tissue balancing. A 9 mm ultra congruent tibial insert provided appropriate soft tissue balancing in both flexion and extension. The patella was resurfaced with a 29 mm x 7.5 mm patellar button. The thickness was checked before and after and was right around 23 mm. Patellar tracking was noted to be concentric. The trial implants were then removed. A 100 mL premixed pericapsular injection was placed into the surroundings soft tissue. Throughout the case, as well, a mixture of vancomycin and polymyxin spray was used to irrigate the knee while making saw cuts. The knee was then thoroughly irrigated with a shower-tip pulsatile lavage. The components were cemented into place using a single mix of high-viscosity Simplex cement preloaded with antibiotics. Care was taken to remove all extravasated cement. The wound was further irrigated while the cement cured. The arthrotomy was then closed with interrupted #1 Ethibond. The knee was put through flexion and extension to ensure a secure closure. The skin was closed with subcuticular Vicryl and tracy. A sterile Aquacel bandage was applied. The patient was extubated and transported to the recovery room in stable condition. Blood loss was minimal. All needle and sponge counts were correct. Job#: [id number] PA
--- NOTE | 2018-10-14 10:05 | NUR ---
Received patient from OR. No signs of distress noted, bed in lowest position, wheels locked, side rails up x2, call light in reach.
[2018-10-14] MEDS: ACETAMINOPHEN 1000 MG/100 ML IV SCH ×3 (11:41→23:49)
[2018-10-14] MEDS: SODIUM CHLORIDE 0.9% 1000ML 1,000 ML IV SCH (11:41)
--- NOTE | 2018-10-14 12:05 | NUR ---
Patient A/O X3, breathing even and unlabored on room air, no signs of distress at this time. Last bowel movement 10/13/18, bowel sounds active. Pillow under right heel and foot pumps in place. Ice pack over right knee due to surgery. Urinates in bedpan. Will continue to monitor.
[2018-10-14] MEDS: METOPROLOL TARTRATE 25 MG TAB PO SCH ×2 (12:17→20:57)
[2018-10-14] MEDS ORDERED: DEXTROSE 50% SYRINGE 50 ML IV PRN (12:30)
--- NOTE | 2018-10-14 12:31 | NUR ---
Dr. Bueno notified of blood sugar 525, new sliding scale order.
[2018-10-14] MEDS: INSULIN LISPRO 100 UNIT/1 ML 3ML VIAL SQ SCH ×3 (12:41→21:14)
[2018-10-14] MEDS: CEFAZOLIN SOD 1 GM/D5W 50ML 50 ML IV SCH ×2 (14:00→21:14)
--- NOTE | 2018-10-14 14:05 | NUR ---
Patient spilt hot soup on chest. Area is slightly red, will continue to monitor.
--- NOTE | 2018-10-14 14:09 | NUR ---
Patient voided after surgery into bedpan.
[2018-10-14] MEDS ORDERED: INSULIN DETEMIR 100 UNIT/ML PEN SQ ONE (16:00)
[2018-10-14] MEDS: ASPIRIN 325 MG TAB PO SCH (16:23)
[2018-10-14] MEDS: GABAPENTIN 100 MG CAP PO SCH (16:24)
[2018-10-14] MEDS: METFORMIN HCL 500 MG TAB PO SCH (16:24)
[2018-10-14] MEDS: CELECOXIB 200 MG CAP PO SCH (16:24)
[2018-10-14] MEDS ORDERED: INSULIN LISPRO 100 UNIT/1 ML 3ML VIAL SQ SCH (16:30)
[2018-10-14] MEDS ORDERED: SEVOFLURANE INHAL SOLN 250 ML PEN BTL ONE (17:34)
[2018-10-14] MEDS ORDERED: ACETAMINOPHEN 1000 MG/100 ML IV ONE (17:34)
[2018-10-14] MEDS ORDERED: PROPOFOL IV EMULSION 10 MG/ML 20 ML VIAL ONE (17:34)
[2018-10-14] MEDS ORDERED: LIDOCAINE HCL 2% LOCAL INJ 5 ML SDV VIAL INJ ONE (17:34)
[2018-10-14] MEDS ORDERED: EPHEDRINE SULFATE INJ 50 MG/10 ML SYR ONE (17:34)
[2018-10-14] MEDS ORDERED: ONDANSETRON HCL INJ 2 MG/ML VIAL ONE (17:34)
[2018-10-14] MEDS ORDERED: ROPIVACAINE 0.5% 5 MG/ML 30 ML SDV ONE (18:32)
[2018-10-14] MEDS ORDERED: LIDOCAINE 2% /EPINEPHRINE 20 ML SDV INJ ONE (18:32)
[2018-10-14] MEDS ORDERED: FENTANYL CITRATE/PF 100MCG/2 ML INJ ONE (18:35)
[2018-10-14] MEDS ORDERED: MIDAZOLAM HCL 2 MG/2 ML VIAL ONE (18:35)
--- NOTE | 2018-10-14 18:55 | NUR ---
Informed Dr. Campos of medical management change. Changed to Dr. Kelly per it being his clinic patient
--- NOTE | 2018-10-14 20:55 | NUR ---
SPOKE TO DR. VEGAS REGARDING CONTINUED ELEVATED BLOOD SUGAR. CONTINUE WITH SCHEDULED INSULINS. CONTINUE NS @ 100ML/HR. CPM PLACED ON PATIENT AT 2040 @ 50 DEGREES. PATIENT TOLERATING WELL. WILL CONTINUE TO MONITOR THE PATIENT CLOSELY.
[2018-10-14] MEDS ORDERED: PRAVASTATIN 20 MG TAB PO SCH (21:00)
[2018-10-14] MEDS ORDERED: NON-FORMULARY MEDICATION (Pravastatin Sodium 1 TAB) PO SCH (21:00)
[2018-10-14] MEDS ORDERED: NON-FORMULARY MEDICATION (Insulin Detemir (Levemir) 25 UNITS) SC SCH (21:00)
[2018-10-14] MEDS: INSULIN DETEMIR 100 UNIT/ML PEN SQ SCH (21:14)
[2018-10-15] VITALS: BP 101/54
[2018-10-15 04:00] VITALS: BP 102/53
[2018-10-15] MEDS: SODIUM CHLORIDE 0.9% 1000ML 1,000 ML IV SCH ×3 (04:32→14:32)
[2018-10-15] MEDS: ACETAMINOPHEN 1000 MG/100 ML IV SCH (05:50)
[2018-10-15 06:15] LABS: BASOPHILS % 0.1 % (0.0-1.0); EOSINOPHILS % 0.1 % (0.0-6.0); HEMATOCRIT 32.2 % (34.2-44.1); HEMOGLOBIN 10.7 g/dL (12.0-16.0); LYMPHOCYTES # (AUTO) 2.5 (1.0-3.2); LYMPHOCYTES % 12.7 % (18.0-39.1); MEAN CORPUSCULAR HEMOGLOBIN 27.4 pg (28-32); MEAN CORPUSCULAR HGB CONC 33.2 g/dL (31-35); MEAN CORPUSCULAR VOLUME 82.6 fL (81-99); MONOCYTES # (AUTO) 1.2 (0.2-0.8); MONOCYTES % 6.4 % (4.4-11.3); NEUTROPHILS # (AUTO) 15.5 (2.1-6.9); NEUTROPHILS % 80.1 % (38.7-80.0); PLATELET COUNT 229 x10e3/uL (140-360); RED CELL DISTRIBUTION WIDTH 14.3 % (11.7-14.4)
--- NOTE | 2018-10-15 06:20 | NUR ---
Medical consultation DOS: 10/14/18 at 7pm PRIMARY CARE PHYSICIAN: Yossi Kelly MD. cc: right knee severe OA HISTORY OF PRESENT ILLNESS: This is a 62-year-old woman with a history of severe osteoarthritis of bilateral hips, who underwent B/L hip replacement now coming in for elective right knee replacement. She underwent the procedure today, and currently is resting in bed with some discomfort. REVIEW OF SYSTEMS: Denies any chest pain, shortness of breath, fever, chills, sweats, nausea, vomiting, diarrhea, dizziness, blurred vision. PAST MEDICAL HISTORY: She has diabetes mellitus, type 2, hypertension, severe osteoarthritis, ambulatory dysfunction, diabetic neuropathy, osteoporosis, hyperlipidemia. PAST SURGICAL HISTORY: B/L hip replacement. ALLERGIES: PER ELECTRONIC MEDICAL RECORD. FAMILY HISTORY/SOCIAL HISTORY: Patient has a child involved in her care. No alcohol, illicits or cigarettes. MEDICATIONS: Per electronic medical record. ROS: no f/c/s/N/V/D/GLEASON/vision changes/cp/sob/skin rash PHYSICAL EXAMINATION VITAL SIGNS: Have been reviewed. GENERAL: A tired-appearing woman resting in bed. HEENT: Anicteric. Pupils respond to light. No oral lesions. CARDIOVASCULAR: Normal S1 and S2. LUNGS: Moderate breath sounds. ABDOMEN: Soft, nontender and nondistended. EXTREMITIES: right knee with dressing; appropriate tenderness SKIN: Dry. PSYCHIATRIC: Normal affect. LABS: Reviewed. MEDICATIONS: Reviewed. ASSESSMENT: This is a 62-year-old woman with: 1. Severe right knee osteoarthritis: Status post TKR. 2. Diabetes mellitus, type 2. 3. Hypertension. 4. Hyperlipidemia. 5. Left hip pain. 6. Normocytic anemia. 7. Osteoporosis. 8. Physical deconditioning. PLAN 1. Pain control. 2. Physical therapy. 3. Control diabetes. 4. Bowel regimen. 5. Continue home medications. 6. DVT prophylaxis and GI prophylaxis. 7. Disposition. Will need physical therapy at home. Monitor glucose overnight Yossi Kelly MD, PhD. (DOS 10/14/18 at 7pm)
--- NOTE | 2018-10-15 06:23 | NUR ---
IM- Progress Note O/N: no events; pain controlled; ROS: no f/c/s/N/V/D/GLEASON/vision changes/cp/sob/skin rash PHYSICAL EXAMINATION VITAL SIGNS: Have been reviewed. GENERAL: A tired-appearing woman resting in bed. HEENT: Anicteric. Pupils respond to light. No oral lesions. CARDIOVASCULAR: Normal S1 and S2. LUNGS: Moderate breath sounds. ABDOMEN: Soft, nontender and nondistended. EXTREMITIES: right knee with dressing; appropriate tenderness SKIN: Dry. PSYCHIATRIC: Normal affect. LABS: Reviewed. MEDICATIONS: Reviewed. ASSESSMENT: This is a 62-year-old woman with: 1. Severe right knee osteoarthritis: Status post TKR. 2. Diabetes mellitus, type 2. 3. Hypertension. 4. Hyperlipidemia. 5. Left hip pain. 6. Normocytic anemia. 7. Osteoporosis. 8. Physical deconditioning. PLAN 1. Pain control. 2. Physical therapy. 3. Control diabetes. 4. Bowel regimen. 5. Continue home medications. 6. DVT prophylaxis and GI prophylaxis. 7. Disposition. Will need physical therapy at home. Monitor glucose overnight 10/15/18 cont PT; d/c planning; will need PT at home; control glucose; Yossi Kelly MD, PhD.
[2018-10-15] MEDS: CEFAZOLIN SOD 1 GM/D5W 50ML 50 ML IV SCH (06:30)
--- NOTE | 2018-10-15 06:30 | NUR ---
cpm at 60 degrees, started at this time. patient tolerating well. encouraged to call for assistance as needed.
[2018-10-15 06:36] LABS: ANION GAP 11.4 mmol/L (8-16); CALCIUM 7.9 mg/dL (8.4-10.2); CREATININE, SERUM 1.39 mg/dL (0.57-1.11); POTASSIUM 4.4 mmol/L (3.5-5.1)
--- NOTE | 2018-10-15 07:32 | NUR ---
Received patient and walking rounds complete. Patient was awake resting in bed. Assisted patient to bathroom and patient is now up sitting in the chair. Call light in reach, non-skid socks on.
[2018-10-15] MEDS ORDERED: GLIPIZIDE 5 MG TAB PO SCH (08:00)
[2018-10-15 08:38] VITALS: BP 134/64
[2018-10-15] MEDS ORDERED: ACETAMINOPHEN 1000 MG/100 ML IV PRN (08:45)
[2018-10-15] MEDS: ASPIRIN 325 MG TAB PO SCH (08:54)
[2018-10-15] MEDS: CELECOXIB 200 MG CAP PO SCH (08:54)
[2018-10-15] MEDS: METOPROLOL TARTRATE 25 MG TAB PO SCH (08:54)
[2018-10-15] MEDS: METFORMIN HCL 500 MG TAB PO SCH (08:54)
[2018-10-15] MEDS: GABAPENTIN 100 MG CAP PO SCH (08:55)
[2018-10-15] MEDS: INSULIN LISPRO 100 UNIT/1 ML 3ML VIAL SQ SCH ×2 (08:56→12:27)
[2018-10-15] MEDS: INSULIN DETEMIR 100 UNIT/ML PEN SQ SCH (08:57)
[2018-10-15] MEDS ORDERED: INSULIN LISPRO 100 UNIT/1 ML 3ML VIAL SQ SCH (09:00)
[2018-10-15] MEDS ORDERED: ENALAPRIL MALEATE 10 MG TAB PO SCH (09:00)
[2018-10-15] MEDS ORDERED: SENNOSIDES 8.6 MG TAB PO SCH (09:00)
[2018-10-15] MEDS ORDERED: PREGABALIN 75 MG CAP PO SCH (09:00)
[2018-10-15] MEDS ORDERED: INSULIN LISPRO SQ SCH (09:00)
[2018-10-15 09:21] VITALS: BP 134/64
--- NOTE | 2018-10-15 09:50 | NUR ---
Patient A/O X3, breathing even and unlabored on room air. Bowel sounds active, patient had a bowel movement this morning (10/15/18). Patient is wearing thigh high Kirk hose bilaterally and non-skid socks. Patient is up with assist. No signs of distress at this time.
[2018-10-15] MEDS ORDERED: ASPIRIN325 MG PO (12:01)
[2018-10-15] MEDS ORDERED: NORCO 7.5-3251 EACH PO (12:30)
[2018-10-15 12:45] VITALS: BP 131/61
--- NOTE | 2018-10-15 13:11 | NUR ---
CM SPOKE TO PATIENT AT BEDSIDE REGARDING THEIR CHOICE FOR HOME HEALTH AND DME SERVICES POST- PROCEDURE. PATIENT INFORMED OF HOME HEALTH SERVICES AND DME PROVIDERS. CHOICE LETTER SIGNED AND PLACED IN CHART. COPY OF CHOICE GIVEN TO PATIENT AND PLACED IN CARE TRANSITION FOLDER. PATIENT CHOSE DME COMPANY: [facility] (P) [phone] (F) [phone] PATIENT ALREADY HAS WALKER WITH WHEELS AND 3 IN 1 COMMODE. [employer] DID NOT ANSWER FOR CONFIRMATION OF [facility] EQUIPMENT DELIVERY. RAY WITH DR. JHA'S OFFICE NOTIFIED AND WILL BE CALLING [employer] FOR CONFIRMATION. PATIENT CHOSE HOME HEALTH COMPANY: [facility] (P) [phone] (F) [phone] CM SPOKE TO AVRIL WITH INTAKE AT [facility]. PATIENT WAS APPROVED AND CONFIRMATION RECEIVED FOR NEXT DAY VISIT BY HOME HEALTH. [facility] INFORMED THAT PATIENT WILL BE DISCHARGING TODAY. PATIENT GIVEN HURTADO WITH EXPLANATION. ORIGINAL SIGNED COPY PLACED IN CHART AND COPY GIVEN TO PATIENT AND PLACED IN CARE TRANSITION FOLDER. PATIENT IS INFORMED TO BRING FOLDER TO ANY FOLLOW- UP PHYSICIAN VISITS.
--- NOTE | 2018-10-15 14:43 | NUR ---
Removed patients IV, catheter tip intact and pressure dressing applied.
--- NOTE | 2018-10-15 14:59 | NUR ---
Patient discharged from facility. Escorted out in wheelchair and left via private auto. Patient gathered all personal belongings and received prescriptions, follow up information, and post-operative care information in discharge paperwork. No signs of distress noted during discharge.
== END 2018-10-15 14:55 | disposition home health service (06) ==
LOC: OR 05:10 → PACU V 08:34 → MED/SURG 10:08
PROVIDERS: ADMIT Specialist; ATTEND Specialist
DX: M17.11 Unilateral primary osteoarthritis, right knee (principal); E11.9 Type 2 diabetes mellitus without complications; I10 Essential (primary) hypertension; Z82.49 Family history of ischemic heart disease and other diseases of the circulatory system; Z80.9 Family history of malignant neoplasm, unspecified; Z96.643 Presence of artificial hip joint, bilateral; Z79.84 Long term (current) use of oral hypoglycemic drugs; Z88.8 Allergy status to other drugs, medicaments and biological substances; Z86.73 Personal history of transient ischemic attack (TIA), and cerebral infarction without residual deficits; Z87.01 Personal history of pneumonia (recurrent); Z01.812 Encounter for preprocedural laboratory examination
CPT/HCPCS: 27447; 36415 ×3; 73560; 80048 ×2; 80061; 82948 ×2; 83036; 85025 ×2; 86850; 86900; 86920; 96372; 97110; 97116 ×2; 97139; 97161; 97530; C1713; G0378 ×2; G8978; G8979; J0131 ×2; J0171; J0690 ×3; J1100; J1170; J1885; J2001 ×2; J2250; J2405 ×2; J2704; J2795; J3370; J7030 ×2; J7040

== ENCOUNTER 2019-04-05 13:01 | Emergency (ER) | payer MEDICARE ==
[~2019-04-05] VITALS: Ht 167.6 cm; Wt 87.1 kg
[~2019-04-05 13:01] MED LIST changes: +NORCO 7.5-3251 EACH PO
[2019-04-05] MEDS ORDERED: HYDROCODONE/APAP 10MG-325MG TAB PO NR (13:30)
[2019-04-05] MEDS ORDERED: MECLIZINE HCL 12.5 MG TAB PO PRN (13:30)
[2019-04-05] MEDS ORDERED: ONDANSETRON HCL 4 MG ORAL DISINTEGRATING TAB PO ONE (13:45)
--- NOTE | 2019-04-05 14:24 | Diagnostic Imaging Report ---
Exam: Pelvic radiograph-1 view, right hip radiographs-3 views History: Status post fall. Comparison: None. Findings: No evidence of acute fracture, malalignment, or soft tissue abnormality. Partially seen left total hip arthroplasty. Status post right total hip arthroplasty with intact hardware and unremarkable alignment. Impression: No acute radiographic abnormality. Signed by: Dr. Tyler Ulloa MD on 04/05/2019 2:21 PM
--- NOTE | 2019-04-05 14:26 | Diagnostic Imaging Report ---
Right knee radiographs-3 views; Right foot radiographs - 2 views History: Status post fall. Findings: Right knee: Status post total right knee arthroplasty with prosthetic components in anatomic alignment. No evidence of acute fracture, malalignment, or soft tissue abnormality. Right foot: No evidence of acute fracture, malalignment or soft tissue abnormality. There is a plantar calcaneal spur and Achilles enthesopathy. IMPRESSION: No acute radiographic abnormality. Status post right total knee arthroplasty. Signed by: Dr. Tyler Ulloa MD on 04/05/2019 2:23 PM
[2019-04-05 15:16] VITALS: BP 118/71
== END 2019-04-05 15:19 | disposition home or self-care (01) ==
LOC: ER 13:01
DX: S70.01XA Contusion of right hip, initial encounter (principal); S80.01XA Contusion of right knee, initial encounter; S90.31XA Contusion of right foot, initial encounter; W01.0XXA Fall on same level from slipping, tripping and stumbling without subsequent striking against object, initial encounter; Y93.01 Activity, walking, marching and hiking; Y92.012 Bathroom of single-family (private) house as the place of occurrence of the external cause; I10 Essential (primary) hypertension; E11.9 Type 2 diabetes mellitus without complications; E78.5 Hyperlipidemia, unspecified; Z79.4 Long term (current) use of insulin; Z83.3 Family history of diabetes mellitus; Z82.49 Family history of ischemic heart disease and other diseases of the circulatory system; Z88.8 Allergy status to other drugs, medicaments and biological substances
CPT/HCPCS: 73502; 73562; 73630; 99283; J8597; Q0162

== ENCOUNTER → 2019-07-15 | Outpatient (CLI) | payer MEDICARE ==
[~2019-07-15] MED LIST changes: +REGADENOSON 0.4 MG/5 ML SYR IV ONE
--- NOTE | 2019-07-15 18:07 | Myoview Stress Test ---
DATE OF STUDY: 07/15/2019 07:42:00 Stress Test - Treadmill ONLY PROCEDURE PERFORMED: Lexiscan nuclear stress test. FINDINGS: The patient was stressed using 1 minute intravenous infusion of Lexiscan. Rest and stress Myoview imaging was obtained. Both nuclear imaging and resting stress is normal. Normal contractility to the left ventricle. CONCLUSIONS: 1. Normal Lexiscan nuclear stress test without evidence of ischemia or infarction. 2. LV ejection fraction of 77%. MD KAILEE Magana/MODL /[id number]
== END ==
LOC: NM 07:26
PROVIDERS: ATTEND Internal Medicine Interventional Cardiology
DX: I20.8 Other forms of angina pectoris (principal)
CPT/HCPCS: 78452; 93017; 93306; A9502; J2785

== ENCOUNTER 2020-04-22 16:19 | Emergency (ER) | payer MEDICARE ==
[~2020-04-22] VITALS: Ht 167.6 cm; Wt 87.1 kg
[~2020-04-22 16:19] MED LIST changes: -REGADENOSON 0.4 MG/5 ML SYR IV ONE
--- NOTE | 2020-04-22 16:38 | Emergency Department Note ---
History of Present Illnes History of Present Illness Chief Complaint: COVID PUI History of Present Illness This is a 64 year old female arrives to the ED with complaints of cough shortness of breath and loss of taste, patient states she was concerned she was Covid 19. . Chief Complaint Comment STATES MAY HAVE COVID, GLEASON, SOB, N/V, DIARRHEA. 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 SATS 95% ROOM AIR. Historian: [employer]/EMS Arrival Mode: [facility] Treatment MATERIALS SCIENTIST: See EMS Report Onset (how long ago): day(s) Severity: mild Onset quality: gradual Duration (how long): day(s) Timing of current episode: intermittent Progression: unchanged Chronicity: new Relieving factors: none Exacerbating factors: none Past Medical/Family History Physician Review I have reviewed the patient's past medical and family history. Any updates have been documented here. Past Medical History Recent Fever: No Clinical Suspicion of Infectio: No New/Unexplained Change in Ment: No Past Medical History: Hypertension, Diabetes, TIA, Liver Disease, Hyperlipedemia, Osteoarthritis Other Medical History: FATTY LIVER Past Surgical History: Cholecysctectomy, Hysterectomy, Hip Replacement, Knee Replacement, Cataract Removal Other Surgery: VAGINAL CYST SUREGERY REMOVE ATT TEETH IN MOUTH Social History Smoking Cessation: Unknown if ever smoked Counseling Performed: No Alcohol Use: None Any Illegal Drug Use: No Other Last Tetanus: UTD Any Pre-Existing Lines (PICC,: No Review of Systems Review of Systems Constitutional: Reports as per HPI, Reports chills, Reports fever EENTM: Reports no symptoms Cardiovascular: Reports no symptoms Respiratory: Reports as per HPI, Reports cough Gastrointestinal: Reports no symptoms Genitourinary: Reports no symptoms Musculoskeletal: Reports no symptoms Integumentary: Reports no symptoms Neurological: Reports no symptoms Psychological: Reports no symptoms Endocrine: Reports no symptoms Hematological/Lymphatic: Reports no symptoms Physical Exam Related Data Allergies: Coded Allergies: insulin glargine (Verified Allergy, Unknown, REDNESS/SWELLING, 04/05/19) Triage Vital Signs Vital Signs Date Time Temp Pulse Resp B/P (MAP) Pulse Ox O2 Delivery O2 Flow Rate FiO2 04/22/20 16:20 97.0 75 16 130/75 95 Room Air Vital signs reviewed: Yes Physical Exam CONSTITUTIONAL Constitutional: Present well-developed, Present well-nourished HENT HENT: Present normocephalic, Present atraumatic, Present oropharynx clear/moist, Present nose normal HENT L/R: Present left ext ear normal, Present right ext ear normal EYES Eyes: Reports PERRL, Reports conjunctivae normal NECK Neck: Present ROM normal PULMONARY Pulmonary: Present effort normal, Present breath sounds normal CARDIOVASCULAR Cardiovascular: Present regular rhythm, Present heart sounds normal, Present capillary refill normal, Present normal rate GASTROINTESTINAL Abdominal: Present soft, Present nontender, Present bowel sounds normal GENITOURINARY Genitourinary: Present exam deferred SKIN Skin: Present warm, Present dry MUSCULOSKELETAL Musculoskeletal: Present ROM normal NEUROLOGICAL Neurological: Present alert, Present oriented x 3, Present no gross motor or sensory deficits PSYCHOLOGICAL Psychological: Present mood/affect normal, Present judgement normal Assessment & Plan Medical Decision Making MDM 64-year-old well-appearing female arrives to the ED with complaints of cough fever generalized malaise and loss of taste. Patient is clinically presenting with signs and symptoms consistent with Covid 19. Patient informed she is positive until proven otherwise. Patient's oxygen saturation remained 99% even on exertion, no evidence of tachypnea or dyspnea noted in the ED. Spoke present length about the importance of sleeping on her stomach and rotating from side to side. Z-Robert given, signs and symptoms for return discussed. In the light of the Covid pandemic, disaster medicine care was given- patient understands why she was not tested for Covid 19 in the ED, no indications for a chest x-ray at this time given normal oxygen saturation and respiratory status. Pt understands she is at high risk of morbidity and mortality given his age and co-morbidiites. Pt understands she is welcome to return to the ED at anytime for worsening symptoms. Assessment & Plan Final Impression: (1) COVID-19 Depart Disposition: HOME, SELF-CARE Last Vital Signs Date Time Temp Pulse Resp B/P (MAP) Pulse Ox O2 Delivery O2 Flow Rate FiO2 04/22/20 16:29 98.7 73 20 105/42 97 04/22/20 16:20 Room Air Home Meds Active Scripts Aspirin (ASPIRIN) 325 Mg Tablet, 325 MG PO BID for 21 Days Prov:YANN CARRILLO 10/15/18 Reported Medications Hydrocodone Bit/Acetaminophen (NORCO 7.5-325 TABLET) 1 Each Tablet, 1 EA PO Q4HR PRN for PAIN, TAB 10/15/18 Insulin Lispro (HUMALOG) 100 Unit/1 Ml Insuln.pen, 27 UNITS SQ DAILY 10/11/18 Enalapril Maleate (VASOTEC) 10 Mg Tab, 10 MG PO DAILY, TAB 10/11/18 Pregabalin (LYRICA) 75 Mg Cap, 75 MG DAILY, #30 CAP 10/11/18 Tramadol Hcl* (ULTRAM 50MG*) 50 Mg Tab, 50 MG PO DAILY, TAB 03/29/18 Pravastatin Sodium (PRAVASTATIN SODIUM) 40 Mg Tablet, 1 TAB PO HS 12/28/17 Metoprolol Tartrate (METOPROLOL TARTRATE) 25 Mg Tablet, 25 MG PO Q12H, TAB 12/28/17 Metformin Hcl (METFORMIN HCL) 500 Mg Tablet, 1000 MG PO BID, #60 TAB 12/28/17 Insulin Detemir (LEVEMIR) 100 Unit/1 Ml Vial, 25 UNITS SC Q12HR 12/28/17 Ibandronate Sodium (IBANDRONATE SODIUM) 150 Mg Tablet, 1 TAB PO MTHLY 12/28/17 Glipizide (GLIPIZIDE) 5 Mg Tablet, 10 MG PO DAILY, TAB 12/28/17 Gabapentin (GABAPENTIN) 100 Mg Capsule, 200 MG PO BID 12/28/17 Cholecalciferol (Vitamin D3) (VITAMIN D) 1,000 Unit Tablet, 88699 UNIT PO WEEKLY, #30 TAB TAKES ON Sunday12/28/17 LYNETTE QUARLES DO Apr 22, 2020 16:38
== END 2020-04-22 17:04 | disposition home or self-care (01) ==
LOC: ER 16:48
DX: U07.1 COVID-19 (principal); R05 Cough; R53.81 Other malaise; I10 Essential (primary) hypertension; E11.9 Type 2 diabetes mellitus without complications; E78.5 Hyperlipidemia, unspecified; Z86.73 Personal history of transient ischemic attack (TIA), and cerebral infarction without residual deficits
CPT/HCPCS: 99283

== ENCOUNTER 2020-11-28 17:13 | Emergency (ER) | payer MEDICARE ==
[~2020-11-28] VITALS: Ht 167.6 cm; Wt 87.1 kg
== END 2020-11-28 17:32 | disposition home or self-care (01) ==
LOC: ER 17:21
DX: S90.822A Blister (nonthermal), left foot, initial encounter (principal); L84 Corns and callosities; I10 Essential (primary) hypertension; E11.9 Type 2 diabetes mellitus without complications; E78.5 Hyperlipidemia, unspecified; K76.9 Liver disease, unspecified; Z86.73 Personal history of transient ischemic attack (TIA), and cerebral infarction without residual deficits
CPT/HCPCS: 99283

== ENCOUNTER 2022-07-23 07:28 | Observation (INO) | payer MEDICARE ==
[~2022-07-23] VITALS: Ht 167.6 cm; Wt 87.1 kg
[2022-07-23] MEDS ORDERED: ONDANSETRON HCL INJ 2MG/ML 2ML 2 MG/ML VIAL IV STA (07:50)
[2022-07-23] MEDS ORDERED: LACTATED RINGER'S 1,000 ML INJ ONE (08:00)
[2022-07-23] MEDS ORDERED: KETOROLAC TROMETHAMINE 30 MG/ML VIAL IV STA (08:00)
[2022-07-23 08:13] LABS: BASOPHILS # (AUTO) 0.1 (0.0-0.1); BASOPHILS % 0.7 % (0.0-1.0); EOSINOPHILS # (AUTO) 0.3 (0.0-0.4); EOSINOPHILS % 3.9 % (0.0-6.0); HEMATOCRIT 39.8 % (34.2-44.1); HEMOGLOBIN 12.9 g/dL (12.0-16.0); LYMPHOCYTES # (AUTO) 2.6 (1.0-3.2); LYMPHOCYTES % 34.3 % (18.0-39.1); MEAN CORPUSCULAR HGB CONC 32.4 g/dL (31-35); MEAN CORPUSCULAR VOLUME 86.3 fL (81-99); MONOCYTES # (AUTO) 0.6 (0.2-0.8); MONOCYTES % 7.4 % (4.4-11.3); NEUTROPHILS # (AUTO) 4.1 (2.1-6.9); NEUTROPHILS % 53.3 % (38.7-80.0); PLATELET COUNT 273 x10e3/uL (140-360); RED BLOOD COUNT 4.61 x10e6/uL (3.6-5.1); RED CELL DISTRIBUTION WIDTH 12.5 % (11.7-14.4)
[2022-07-23] MEDS: FENTANYL CITRATE/PF 100MCG/2 ML INJ IV PRN ×3 (08:15→13:35)
[2022-07-23 08:17] LABS: CLARITY,URINE CLEAR (CLEAR); COLOR,URINE YELLOW (YELLOW); LEUKOCYTE ESTERASE ,URINE SMALL (NEGATIVE); NITRITE,URINE NEGATIVE (NEGATIVE)
[2022-07-23 08:18] LABS: KETONES,URINE NEGATIVE (NEGATIVE); PROTEIN,URINE DIPSTICK NEGATIVE (NEGATIVE); URINE UROBILINOGEN 0.2 mg/dL (0.2 - 1)
[2022-07-23 08:31] LABS: ALBUMIN 3.5 g/dL (3.5-5.0); ALBUMIN/GLOBULIN RATIO 0.8 (0.8-2.0); ANION GAP 15.4 mmol/L (8-16); CALCIUM 9.1 mg/dL (8.4-10.2); CREATININE, SERUM 1.17 mg/dL (0.57-1.11); POTASSIUM 4.4 mmol/L (3.5-5.1)
[2022-07-23 08:41] LABS: BACTERIA,URINE FEW /HPF; EPITHELIAL CELLS,URINE RARE /LPF; RBC,URINE 0-5 /HPF (0-5); TRANSITIONAL EPI CELLS,URINE FEW
[2022-07-23] MEDS ORDERED: IOPAMIDOL 370 MG/ML 100 ML INFUS..BTL INJ ONE (09:22)
[2022-07-23] MEDS ORDERED: PIPERACILLIN/TAZOBACTAM 4.5 GM in SODIUM CHLORIDE 0.9% 100 ML IV SCH (11:00)
[2022-07-23] MEDS ORDERED: SODIUM CHLORIDE 0.9% 1000ML 1,000 ML IV SCH (11:00)
[2022-07-23] MEDS ORDERED: ONDANSETRON HCL INJ 2MG/ML 2ML 2 MG/ML VIAL IV PRN ×2 (11:00→16:30)
[2022-07-23] MEDS ORDERED: INSULIN LISPRO 100 UNIT/1 ML 3ML VIAL SQ SCH (11:30)
[2022-07-23] MEDS ORDERED: DEXTROSE 50% SYRINGE 50 ML IV PRN ×3 (11:30→16:30)
[2022-07-23] MEDS ORDERED: TRELEGY ELLIPT1 EACH PO (13:27)
[2022-07-23] MEDS ORDERED: OZEMPIC0.25 MG/0. SC (13:29)
[2022-07-23] MEDS: Morphine 4mg INJECTION 4 MG/ML INJ IV PRN ×2 (16:15→20:16)
[2022-07-23] MEDS ORDERED: LIDOCAINE 4% PATCH TP PRN (16:30)
[2022-07-23] MEDS ORDERED: POTASSIUM CHLORIDE 20 MEQ TAB CR PO PRN (16:30)
[2022-07-23] MEDS ORDERED: CHLORASEPTIC SPRAY 177 ML BTL MM PRN (16:30)
[2022-07-23] MEDS ORDERED: SIMETHICONE 80 MG CHEW PO PRN (16:30)
[2022-07-23] MEDS ORDERED: ACETAMINOPHEN 325 MG TAB PO PRN (16:30)
[2022-07-23] MEDS: INSULIN LISPRO 100 UNIT/1 ML 3ML VIAL SQ SCH ×2 (16:30→21:00)
[2022-07-23] MEDS ORDERED: DOCUSATE SODIUM 100 MG CAP PO PRN (16:30)
[2022-07-23] MEDS ORDERED: DIPHENHYDRAMINE HCL 25 MG CAP PO PRN (16:30)
[2022-07-23] MEDS ORDERED: BENZONATATE 100 MG CAP PO PRN (16:30)
[2022-07-23] MEDS ORDERED: ALBUTEROL/IPRATROPIUM 3 ML NEB NEB PRN (16:30)
[2022-07-23] MEDS ORDERED: ASPIRIN 81 MG CHEW TAB PO ONE (17:00)
[2022-07-23 17:38] VITALS: BP 147/88
[2022-07-23 18:07] VITALS: BP 147/88
[2022-07-23] MEDS: DEXTROSE 5%/0.9% SOD CHL 1,000 ML IV SCH (18:08)
[2022-07-23] MEDS: KETOROLAC TROMETHAMINE 30 MG/ML VIAL IV SCH ×2 (18:08→22:00)
[2022-07-23] MEDS: METOCLOPRAMIDE HCL 10 MG/2ML VIAL IV SCH (18:09)
[2022-07-23 20:48] VITALS: BP 167/68
[2022-07-23] MEDS ORDERED: MELATONIN 5 MG TABLET PO PRN (21:00)
[2022-07-24] VITALS (8 sets, daily range): BP systolic 122–177; BP diastolic 61–92
[2022-07-24] MEDS: Morphine 4mg INJECTION 4 MG/ML INJ IV PRN ×2 (00:17→04:35)
[2022-07-24] MEDS: METOCLOPRAMIDE HCL 10 MG/2ML VIAL IV SCH ×4 (00:17→16:22)
[2022-07-24 01:15] LABS: CREATINE KINASE 51 IU/L (29-168)
[2022-07-24] MEDS: DEXTROSE 5%/0.9% SOD CHL 1,000 ML IV SCH ×2 (04:40→10:46)
[2022-07-24 05:55] LABS: BASOPHILS % 0.6 % (0.0-1.0); EOSINOPHILS # (AUTO) 0.2 (0.0-0.4); EOSINOPHILS % 3.7 % (0.0-6.0); HEMATOCRIT 33.7 % (34.2-44.1); HEMOGLOBIN 10.6 g/dL (12.0-16.0); LYMPHOCYTES # (AUTO) 1.9 (1.0-3.2); LYMPHOCYTES % 31.1 % (18.0-39.1); MEAN CORPUSCULAR HEMOGLOBIN 27.5 pg (28-32); MEAN CORPUSCULAR HGB CONC 31.5 g/dL (31-35); MEAN CORPUSCULAR VOLUME 87.5 fL (81-99); MONOCYTES # (AUTO) 0.6 (0.2-0.8); MONOCYTES % 9.4 % (4.4-11.3); NEUTROPHILS # (AUTO) 3.4 (2.1-6.9); NEUTROPHILS % 54.9 % (38.7-80.0); PLATELET COUNT 223 x10e3/uL (140-360); RED BLOOD COUNT 3.85 x10e6/uL (3.6-5.1); RED CELL DISTRIBUTION WIDTH 12.7 % (11.7-14.4)
[2022-07-24 06:23] LABS: ALBUMIN 2.7 g/dL (3.5-5.0); ALBUMIN/GLOBULIN RATIO 0.9 (0.8-2.0); ANION GAP 11.6 mmol/L (8-16); CALCIUM 7.5 mg/dL (8.4-10.2); CREATININE, SERUM 1.43 mg/dL (0.57-1.11); MAGNESIUM 1.4 MG/DL (1.3-2.1); POTASSIUM 4.6 mmol/L (3.5-5.1)
[2022-07-24] MEDS: KETOROLAC TROMETHAMINE 30 MG/ML VIAL IV SCH ×3 (06:42→21:21)
[2022-07-24 06:57] LABS: CHOL/HDL RATIO 4.4 (3.0-3.6)
[2022-07-24] MEDS ORDERED: BUPIVACAINE 0.25% 30ML SDV ONE (07:29)
[2022-07-24] MEDS: PANTOPRAZOLE SOD 40 MG TABEC PO SCH (07:30)
[2022-07-24] MEDS: INSULIN LISPRO 100 UNIT/1 ML 3ML VIAL SQ SCH ×4 (07:30→21:00)
[2022-07-24 07:40] LABS: CREATINE KINASE 45 IU/L (29-168)
[2022-07-24] MEDS ORDERED: HYDROCODONE/APAP 5MG-325MG TAB PO PRN (08:45)
[2022-07-24] MEDS ORDERED: ACETAMINOPHEN 325 MG/10 ML UDC PO PRN (08:45)
[2022-07-24] MEDS: ONDANSETRON HCL INJ 2MG/ML 2ML 2 MG/ML VIAL IV PRN ×3 (10:33→21:22)
[2022-07-24] MEDS ORDERED: MIDAZOLAM HCL 2 MG/2 ML VIAL ONE (13:38)
[2022-07-24] MEDS ORDERED: ALBUTEROL IH (14:18)
[2022-07-25] VITALS (9 sets, daily range): BP systolic 149–191; BP diastolic 78–89
[2022-07-25] MEDS: DEXTROSE 5%/0.9% SOD CHL 1,000 ML IV SCH ×3 (00:05→11:04)
[2022-07-25] MEDS: KETOROLAC TROMETHAMINE 30 MG/ML VIAL IV SCH ×2 (00:06→05:54)
[2022-07-25] MEDS: METOCLOPRAMIDE HCL 10 MG/2ML VIAL IV SCH ×5 (00:06→23:56)
[2022-07-25 04:55] LABS: BASOPHILS % 0.4 % (0.0-1.0); EOSINOPHILS # (AUTO) 0.2 (0.0-0.4); EOSINOPHILS % 3.3 % (0.0-6.0); HEMATOCRIT 35.3 % (34.2-44.1); HEMOGLOBIN 11.1 g/dL (12.0-16.0); LYMPHOCYTES # (AUTO) 1.6 (1.0-3.2); MEAN CORPUSCULAR HEMOGLOBIN 27.4 pg (28-32); MEAN CORPUSCULAR HGB CONC 31.4 g/dL (31-35); MEAN CORPUSCULAR VOLUME 87.2 fL (81-99); MONOCYTES # (AUTO) 0.6 (0.2-0.8); MONOCYTES % 9.1 % (4.4-11.3); NEUTROPHILS # (AUTO) 4.2 (2.1-6.9); NEUTROPHILS % 63.1 % (38.7-80.0); PLATELET COUNT 211 x10e3/uL (140-360); RED BLOOD COUNT 4.05 x10e6/uL (3.6-5.1); RED CELL DISTRIBUTION WIDTH 12.2 % (11.7-14.4)
[2022-07-25 05:17] LABS: ANION GAP 14.8 mmol/L (8-16); CALCIUM 7.1 mg/dL (8.4-10.2); CREATININE, SERUM 1.15 mg/dL (0.57-1.11); POTASSIUM 3.8 mmol/L (3.5-5.1)
[2022-07-25] MEDS: PANTOPRAZOLE SOD 40 MG TABEC PO SCH (09:33)
[2022-07-25] MEDS: INSULIN LISPRO 100 UNIT/1 ML 3ML VIAL SQ SCH ×4 (10:04→20:27)
[2022-07-25] MEDS: HYDRALAZINE HCL 20 MG/ML VIAL IV PRN ×2 (13:00→19:12)
[2022-07-25] MEDS: ONDANSETRON HCL INJ 2MG/ML 2ML 2 MG/ML VIAL IV PRN ×2 (15:08→20:34)
[2022-07-25] MEDS: METOPROLOL TARTRATE 25 MG TAB PO SCH (17:24)
[2022-07-25] MEDS: ENALAPRIL MALEATE 10 MG TAB PO SCH (17:24)
[2022-07-25] MEDS ORDERED: METOPROLOL TARTRATE 25 MG TAB PO SCH (17:30)
[2022-07-26 00:13] VITALS: BP 132/56
[2022-07-26] MEDS: METOCLOPRAMIDE HCL 10 MG/2ML VIAL IV SCH (05:07)
[2022-07-26 05:24] VITALS: BP 162/70
[2022-07-26 08:02] VITALS: BP 172/82
[2022-07-26 08:12] VITALS: BP 172/82
[2022-07-26] MEDS: METOPROLOL TARTRATE 25 MG TAB PO SCH (08:35)
[2022-07-26] MEDS: ENALAPRIL MALEATE 10 MG TAB PO SCH (08:35)
[2022-07-26] MEDS: PANTOPRAZOLE SOD 40 MG TABEC PO SCH (08:36)
[2022-07-26] MEDS ORDERED: ENALAPRIL MALEATE 10 MG TAB PO SCH (09:00)
[2022-07-26] MEDS: INSULIN LISPRO 100 UNIT/1 ML 3ML VIAL SQ SCH (09:02)
[2022-07-26 09:15] VITALS: BP 160/75
[2022-07-26] MEDS ORDERED: ULTRAM 50MG50 MG PO (09:54)
[2022-07-26] MEDS ORDERED: POVIDONE IODINE 0.05% 0.05 % ML PO ONE (11:02)
[2022-07-26] MEDS ORDERED: PROPOFOL IV EMULSION 10 MG/ML 20 ML VIAL IV ONE (11:02)
[2022-07-26] MEDS ORDERED: KETOROLAC TROMETHAMINE 30 MG/ML VIAL IV ONE (11:02)
[2022-07-26] MEDS ORDERED: SEVOFLURANE INHAL SOLN 250 ML PEN BTL INH ONE (11:02)
[2022-07-26] MEDS ORDERED: ONDANSETRON HCL INJ 2MG/ML 2ML 2 MG/ML VIAL IV ONE (11:02)
[2022-07-26] MEDS ORDERED: SUCCINYLCHOLINE CHLORIDE 20 MG/ML 10ML VIAL IV ONE (11:02)
[2022-07-30] MEDS ORDERED: ULTRAM 50MG50 MG PO ×2 (08:51→09:15)
== END 2022-07-26 11:03 | disposition home or self-care (01) ==
LOC: ER 07:33 → INTOOBSV 10:55 → ERHOLD 10:55 → MED/SURG 17:38
PROVIDERS: ADMIT Internal Medicine; ATTEND Internal Medicine
DX: K35.80 Unspecified acute appendicitis (principal); K66.0 Peritoneal adhesions (postprocedural) (postinfection); I10 Essential (primary) hypertension; E11.9 Type 2 diabetes mellitus without complications; E66.9 Obesity, unspecified; Z68.31 Body mass index [BMI] 31.0-31.9, adult; Z86.73 Personal history of transient ischemic attack (TIA), and cerebral infarction without residual deficits; Z88.8 Allergy status to other drugs, medicaments and biological substances; Z79.82 Long term (current) use of aspirin; Z79.84 Long term (current) use of oral hypoglycemic drugs; Z79.4 Long term (current) use of insulin; Z20.822 Contact with and (suspected) exposure to COVID-19
CPT/HCPCS: 36415 ×4; 44970; 74177; 80048; 80053 ×2; 80061; 81001; 82550 ×2; 82553 ×2; 82948 ×4; 83605; 83690; 83735; 84484 ×2; 85025 ×3; 87040; 87086; 88304; 93005 ×2; 94799 ×3; 99284; G0378 ×4; J0360; J1885 ×3; J2250; J2270 ×2; J2405 ×3; J2543 ×5; J2765 ×4; J3010; J7030; J7042 ×3; J7050; J7121; Q9967; S0164 ×2; U0002; J0330

== ENCOUNTER 2024-11-23 10:18 | Emergency (ER) | payer MEDICARE ==
[~2024-11-23] VITALS: Ht 167.6 cm; Wt 77.1 kg
[~2024-11-23 10:18] MED LIST changes: +ALBUTEROL IH; +OZEMPIC0.25 MG/0. SC; +TRELEGY ELLIPT1 EACH PO
[2024-11-23 10:29] VITALS: TEMP 98.5
[2024-11-23 10:54] LABS: BASOPHILS # (AUTO) 0.1 (0.0-0.1); BASOPHILS % 0.7 % (0.0-1.0); EOSINOPHILS # (AUTO) 0.2 (0.0-0.4); EOSINOPHILS % 2.7 % (0.0-6.0); HEMATOCRIT 32.6 % (34.2-44.1); HEMOGLOBIN 10.8 g/dL (12.0-16.0); LYMPHOCYTES # (AUTO) 2.6 (1.0-3.2); LYMPHOCYTES % 35.9 % (18.0-39.1); MEAN CORPUSCULAR HGB CONC 33.1 g/dL (31-35); MEAN CORPUSCULAR VOLUME 84.5 fL (81-99); MONOCYTES # (AUTO) 0.6 (0.2-0.8); MONOCYTES % 7.9 % (4.4-11.3); NEUTROPHILS # (AUTO) 3.8 (2.1-6.9); NEUTROPHILS % 52.4 % (38.7-80.0); PLATELET COUNT 285 x10e3/uL (140-360); RED BLOOD COUNT 3.86 x10e6/uL (3.6-5.1); RED CELL DISTRIBUTION WIDTH 13.4 % (11.7-14.4); WHITE BLOOD COUNT 7.33 x10e3/uL (4.8-10.8)
[2024-11-23 11:11] LABS: ALBUMIN 3.5 g/dL (3.5-5.0); ALBUMIN/GLOBULIN RATIO 0.9 (0.8-2.0); BILIRUBIN,TOTAL 0.5 mg/dL (0.2-1.2); CREATININE, SERUM 2.18 mg/dL (0.57-1.11); TOTAL PROTEIN 7.4 g/dL (6.5-8.1)
[2024-11-23 11:13] LABS: CORONAVIRUS COVID-19 AG NEGATIVE (NEGATIVE); INFLUENZA A AG NEGATIVE (NEGATIVE); INFLUENZA B AG NEGATIVE (NEGATIVE)
[2024-11-23] MEDS: Morphine 4mg INJECTION 4 MG/ML INJ IV ONE (11:23)
[2024-11-23 11:26] VITALS: PULSE 81; RESP 20
[2024-11-23 12:33] VITALS: PULSE 95; RESP 24; O2SAT 98
[2024-11-23 12:45] VITALS: BP 162/110
== END 2024-11-23 13:21 | disposition home or self-care (01) ==
LOC: ER 10:24
DX: M79.605 Pain in left leg (principal); Z96.643 Presence of artificial hip joint, bilateral; Z96.653 Presence of artificial knee joint, bilateral; I10 Essential (primary) hypertension; E11.40 Type 2 diabetes mellitus with diabetic neuropathy, unspecified; J44.9 Chronic obstructive pulmonary disease, unspecified; E78.5 Hyperlipidemia, unspecified; K76.9 Liver disease, unspecified; Z11.52 Encounter for screening for COVID-19; Z86.73 Personal history of transient ischemic attack (TIA), and cerebral infarction without residual deficits
CPT/HCPCS: 36415; 71045; 73502; 73562; 80053; 84484; 85025; 87428; 93005; 99284; J2270

== ENCOUNTER → 2024-12-04 | Outpatient (REF) | payer MEDICARE | LOC: MAMMO 13:38 | PROVIDERS: ATTEND Internal Medicine | DX: Z12.31 Encounter for screening mammogram for malignant neoplasm of breast (principal); Z13.820 Encounter for screening for osteoporosis | CPT/HCPCS: 77067; 77080 ==